=== PATIENT | female | born 1985 | race Caucasian/White ===

== ENCOUNTER 2018-02-19 20:12 | Emergency (ER) | payer OTHER ==
[~2018-02-19] VITALS: Ht 154.9 cm; Wt 52.2 kg
== END 2018-02-19 21:40 | disposition home or self-care (01) ==
LOC: ER 20:12
DX: R06.02 Shortness of breath (principal); F06.4 Anxiety disorder due to known physiological condition

== ENCOUNTER → 2018-12-17 | Emergency (ER) | payer OTHER ==
[~2018-12-17] VITALS: Ht 154.9 cm; Wt 52.2 kg
== END | disposition home or self-care (01) ==
LOC: ER 11:45
DX: M72.2 Plantar fascial fibromatosis (principal)

== ENCOUNTER 2022-09-24 13:01 | Emergency (ER) | payer OTHER ==
[~2022-09-24] VITALS: Ht 157.5 cm; Wt 49.9 kg
[2022-09-24] MEDS ORDERED: PRENA1 TRUE CO1 EACH PO (17:33)
[2022-09-24] MEDS ORDERED: HEMATOGEN FA S1 EACH PO (17:33)
== END 2022-09-24 17:43 | disposition home or self-care (01) ==
LOC: ER 13:01
DX: O20.9 Hemorrhage in early pregnancy, unspecified (principal); Z3A.12 12 weeks gestation of pregnancy